=== PATIENT | male | born 1940 | race Caucasian/White ===

== ENCOUNTER → 2017-08-11 12:59 | Outpatient (CLI) | payer MEDICARE, BC ==
[~2017-08-11 12:59] MED LIST: ABILIFY2 MG PO; AMITIZA24 MCG PO; AUGMENTIN 875-11 TAB PO; CARDURA1 MG PO; CYMBALTA60 MG PO; DUREZOL5 ML RIGHT EYE; FLOMAX0.4 MG PO; FLUTICASONE PRO16 GM NASAL; FUROSEMIDE40 MG PO; ILEVRO 0.3% OPHTH DR RIGHT EYE; ISOSORBIDE MONO30 M1 PO; KLOR-CON 1010 MEQ PO; LEVEMIR100 U/M1 SC; MAG-OX 400 MG400 MG PO; NEURONTIN 300300 MG PO; NITROQUICK0.4 MG SL; NORVASC10 MG PO; NOVOLOG100 U/M1 SC; PLAVIX75 MG PO; PRIMIDONE PO; PROBIOTIC1 EAC1 PO; PROPAFENONE HC150 MG PO; TOBREX5 ML RIGHT EYE; ZANAFLEX4 MG PO; ZOFRAN ODT4 MG/UDTAB PO
[2017-08-11 15:07] LABS: CALC OSMOLALITY 291 mosm/kg (275-300); CALCIUM 9.3 mg/dL (8.5-10.1); CARBON DIOXIDE 34.8 mmol/L (21.0-32.0); CHLORIDE - SERUM 105 mmol/L (98-107); CREATININE - SERUM 1.5 mg/dL (0.6-1.3); GLUCOSE 185 mg/dL (74-106); POTASSIUM - SERUM 4.2 mmol/L (3.5-5.1); SODIUM 143 mmol/L (136-145); UREA NITROGEN 19 mg/dL (7-18)
[2017-09-27 09:31] VITALS: BMI 32.9
== END | disposition home or self-care (01) ==
LOC: EDSEX 12:59 → D.LABREF 12:59
PROVIDERS: Internal Medicine Cardiovascular Disease
DX: N18.9 Chronic kidney disease, unspecified (principal)

== ENCOUNTER 2017-09-20 10:04 | Outpatient (CLI) | payer MEDICARE, BC ==
[~2017-09-20] VITALS: Ht 180.3 cm; Wt 105.5 kg
--- NOTE | ~2017-09-20 | HEMODYNAMI ---
PATIENT:FERNANDO NICOLE MEDICAL RECORD: [id number] : 44 LOCATION:D.CAT ADMISSION DATE: 09/20/17 Generatedon:09/20/201713:54 Patient name: FERNANDO NICOLE Patient #: [id number] SSN: : 1940 Date of study: 09/20/2017 Page: Of Hemodynamic Procedure Report Patient Data Patient Demographics Procedure consent was obtained First Name: FERNANDO Gender: Unknown Last Name: [address] : 1940 Middle Initial: H Age: 77 year(s) Patient #: [id number] Race: Unknown Additional ID: [id number] Contact details Address: [address] State: [place] City: [place] Zip code: [address] Past Medical History Allergies Allergen Reaction Date Comments Reported Other allergy 09/20/2017 see chart Admission Admission Data Admission Date: 09/20/2017 Admission Time: 10:04 Height (in.): 72 BSA: 2.31 (m2) Height (cm.): 182.88 BMI: 32.69 (kg/m2) Weight (lbs.): 241 Weight (kg.): 109.32 Procedure Procedure Types Cath Procedure Diagnostic Procedure LHC C w/Coronaries w/Grafts Aortic Root Angiography Miscellaneous Procedures Moderate Sedation up to 15 minutes Procedure Description Procedure Date Procedure Date: 09/20/2017 Procedure Start Time: 13:22 Procedure End Time: 13:51 Procedure Staff Name Function Leonardo Yuan MD Performing Physician Pushpa Aviles RT Monitor Scarlet Rivero RT Scrub Ludmila Edgar RN Nurse Manuel Ralph RN Clinical Psychology Professor Procedure Data Cath Procedure Fluoroscopy Diagnostic fluoroscopy Total fluoroscopy Time: 8.8 time: 8.8 min min Diagnostic fluoroscopy Total fluoroscopy dose: dose: 1166 mGy 1166 mGy Contrast Material Contrast Material Type Amount (ml) Isovue 300 138 Entry Location Entry Primary Successful Side Size Upsize Upsize Entry Closure Succes sful Closure Location (Fr) 1 (Fr) 2 (Fr) Remarks Device Remarks Femoral Right 5 Fr Exoseal artery Estimated blood loss: 10 ml Diagnostic catheters Device Type Used For End Catheter Placement MULTIPACK JL 4.0 5Fr Procedure catheter MULTIPACK 3DRC 5Fr Procedure catheter DIAGNOSTIC AR MOD 5Fr Procedure Catheter ([id number]) DIAGNOSTIC IMT 5Fr Procedure Catheter ([id number]) MULTIPACK Pigtail 5 Fr Procedure catheter DIAGNOSTIC IMT 5Fr Procedure Catheter ([id number]) Procedure Complications No complications Procedure Medications Medication Administration Route Dosage Oxygen NC 2 l/min Lidocaine 2% added to field 20 Heparin Flush Bag added to field 2 bags (1000units/500ml NS) 0.9% NaCl I.V. 100 ml/hr Versed I.V. 1 mg Fentanyl I.V. 50 mcg Fentanyl I.V. 50 mcg Fentanyl I.V. 50 mcg Hemodynamics Rest BSA: 2.31 (m2) O2 Consumption: Estimated: 314.16 (ml/min) O2 Consumption indexed : Estimated:136 (ml/min/m) Heart Rate: 69 (bpm) Pressure Samples Time Site Value (mmHg) Purpose Heart Use Rate(bpm) 13:36 LV 145/2,17 Snapshot 69 13:36 LV 140/0,14 Snapshot 68 13:37 AO 150/62(98) Pullback 70 13:37 LV 147/-4,11 Pullback 70 Gradients Valve Time Site 1 Site 2 Mean SEP/DFP Peak To Heart Use (mmHg) (sec/min) Peak Rate (mmHg) (bpm) Aortic 13:37 LV AO 0 6 0 70 147/-4,11 150/62(98) Calculations Valve P-P Mean Valve Index Valve Source Name Gradient Area Flow (cm2) Aortic 0 0 0 0 Snapshots Pre Cath Intra NCS Post Cath Vital Signs Time Heart Resp SPO2 etCO2 NIBP (mmHg) Rhythm Pain Sedation Rate (ipm) (%) (mmHg) Status Level (bpm) 13:08:09 60 17 97 32.5 Measuring NSR 0 (11) 10(A) , No pain 13:08:28 59 17 97 42.3 172/88(143) NSR 0 (11) 10(A) , No pain 13:12:52 61 16 98 32.4 168/95(143) NSR 0 (11) 10(A) , No pain 13:17:14 58 15 97 33.2 164/87(133) NSR 0 (11) 10(A) , No pain 13:21:40 62 16 98 25.6 180/87(142) NSR 0 (11) 9(A) , No pain 13:25:54 58 13 94 39.3 156/89(142) NSR 0 (11) 9(A) , No pain 13:30:14 70 13 98 34.2 176/97(149) NSR 0 (11) 9(A) , No pain 13:34:47 70 15 99 28.7 171/89(134) NSR 0 (11) 9(A) , No pain 13:39:11 68 15 98 24.9 163/82(123) NSR 0 (11) 9(A) , No pain 13:43:33 67 14 96 33.2 158/91(134) NSR 0 (11) 9(A) , No pain 13:47:57 67 16 97 25.6 169/85(133) NSR 0 (11) 10(A) , No pain 13:52:20 65 11 98 40.8 160/95(127) NSR 0 (11) 10(A) , No pain Medications Time Medication Route Dose Verified Delivered Reason Notes Effe ctiveness by by 13:05:53 Oxygen NC 2 Leonardo Buffie used for l/min Kwabena Edgar RN procedure 13:06:00 Lidocaine 2% added 20ml Leonardo Leonardo for local to vial Kwabena Yuan MD anesthetic field 13:06:06 Heparin Flush added 2 Leonardo Leonardo used for Bag to bags Kwabena Yuan MD procedure (1000units/500ml field NS) 13:06:17 0.9% NaCl I.V. 100 Leonardo Buffie Per ml/hr Kwabena Edgar RN physician 13:15:53 Versed I.V. 1 mg Leonardo Buffie for Kwabena Edgar RN sedation 13:15:59 Fentanyl I.V. 50 Leonardo Buffie for mcg Kwabena Edgar RN sedation 13:19:01 Fentanyl I.V. 50 Leonardo Buffie for mcg Kwabena Edgar RN sedation 13:35:47 Fentanyl I.V. 50 Leonardo Buffie for mcg Kwabena Edgar RN sedation Procedure Log Time Note 12:52:12 Patient Height : 72 inches 12:52:17 Patient Weight : 241 lbs 12:52:48 Diagnostic Cath status Elective 12:52:52 Manuel Ralph RN sent for patient. Start room use. 12:52:54 Time tracking: Regular hours 12:52:58 Plan of Care:Hemodynamics will remain stable., Cardiac rhythm will remain stable., Comfort level will be maintained., Respiratory function will remain adequate., Patient/ family verbilizes understanding of procedure., Procedure tolerated without complication., Recovers from procedure without complications.. 12:56:52 Patient received from Pre/Post Procedure Room to CCL 2 Alert and oriented. Tansferred to table in Supine position. 12:56:53 Warm blankets applied, and mohit hugger turned on for patient comfort. 12:56:54 Correct patient and procedure confirmed by team. 12:56:56 Signed procedure consent form obtained from patient. 12:57:31 H&P Date Dictated: 09/07/2017 Within 30 days and on chart., H&P Addendum completed by physician on day of procedure. (MUST COMPLETE FOR ALL OUTPATIENTS). 12:57:32 Pre-procedure instructions explained to patient. 12:57:36 Family in waiting room. 12:57:37 Patient NPO since Midnight. 12:57:54 Patient allergic to Other allergysee chart 12:58:04 Was the patient premedicated? Yes 13:05:53 Oxygen 2 l/min NC was administered by Ludmila Edgar RN; used for procedure; 13:06:00 Lidocaine 2% 20ml vial added to field was administered by Leonardo Yuan MD; for local anesthetic; 13:06:06 Heparin Flush Bag (1000units/500ml NS) 2 bags added to field was administered by Leonardo Yuan MD; used for procedure; 13:06:17 0.9% NaCl 100 ml/hr I.V. was administered by Ludmila Edgar RN; Per physician; 13:06:21 Vital chart was started 13:14:23 Is patient on blood thinner?Yes 13:14:27 ACC The patient was administered the following blood thiners within the last 24 hours: ACCPlavix 13:14:35 Patient diabetic? Yes. 13:15:10 Snore? Yes 13:15:12 Sleep apnea? No 13:15:23 IV patent on arrival in left hand with 0.9% NaCl at [facility]. 13:15:27 Lab results completed and on chart. 13:15:30 Right groin area was prepped with chlora-prep and draped in sterile fashion 13:15:31 Alarms reviewed by R. N. 13:15:32 Sharps counted by scrub and verified by R.N. 13:15:32 Physician paged 13:15:33 Physician arrived 13:15:39 --------ALL STOP TIME OUT------ 13:15:40 Final Timeout: patient, procedure, and site verified with staff and physician. All members of the team are in agreement. 13:15:41 Right groin site verified by team. 13:15:45 Physical assessment completed. ASA score P 2 - A patient with mild systemic disease as per Leonardo Yuan MD. 13:15:49 Sedation plan: IV Moderate Sedation Medication:Versed, Fentanyl 13:15:53 Versed 1 mg I.V. was administered by Ludmila Edgar RN; for sedation; 13:15:59 Fentanyl 50 mcg I.V. was administered by Ludmila Edgar RN; for sedation; 13:16:10 Use device set Femoral Dx 13:16:11 ACIST Syringe (95120) opened to sterile field. 13:16:12 Bag Decanter (2002S) opened to sterile field. 13:16:13 Medline Cath Pack ([id number]) opened to sterile field. 13:16:14 SHEATH 5FR [place] (TRI230) opened to sterile field. 13:16:14 DIAGNOSTIC WIRE .035 260cm J wire (210796) opened to sterile field. 13:16:16 ACIST Hand Control (42331) opened to sterile field. 13:16:16 ACIST Manifold (67304) opened to sterile field. 13:16:17 DIAGNOSTIC Multipack 5Fr catheter set (QA6221) opened to sterile field. 13:16:19 Tegaderm 4 x 4 (1626W) opened to sterile field. 13:19:01 Fentanyl 50 mcg I.V. was administered by Ludmila Edgar RN; for sedation; 13:19:26 Zero performed for pressure channel P1 13:22:17 Procedure started. 13:22:17 Full Disclosure recording started 13:22:29 Local anesthetic to right femoral artery with Lidocaine 2% by Leonardo Yuan MD.INITIAL ACCESS ONLY 13:23:41 A 5 Fr sheath was inserted into the Right Femoral artery 13:24:06 A MULTIPACK JL 4.0 5Fr catheter was advanced over the wire and used for Procedure. 13:24:09 LCA angiography performed. 13:26:37 Catheter removed. 13:26:48 A MULTIPACK 3DRC 5Fr catheter was advanced over the wire and used for Procedure. 13:26:51 RCA angiography performed. 13:27:37 Catheter removed. 13:28:05 A DIAGNOSTIC AR MOD 5Fr Catheter ([id number]) was advanced over the wire and used for Procedure. 13:29:28 SVG to Circ angiography performed. 13:30:45 Catheter removed. 13:31:39 A DIAGNOSTIC IMT 5Fr Catheter ([id number]) was advanced over the wire and used for Procedure. 13:31:45 DUFFY angiography performed. 13:35:19 A MULTIPACK Pigtail 5 Fr catheter was advanced over the wire and used for Procedure. 13:35:24 LV gram done using JOHNSON 13:35:47 Fentanyl 50 mcg I.V. was administered by Ludmila Edgar RN; for sedation; 13:37:15 EF : 55 % 13:38:13 Aortic Root visualized 13:41:40 GLIDE WIRE ANGLE 260cm (JJ6589) opened to sterile field. 13:42:25 A DIAGNOSTIC IMT 5Fr Catheter ([id number]) was advanced over the wire and used for Procedure. 13:45:32 DUFFY to LAD angiography performed. 13:45:43 DUFFY to Diag angiography performed. 13:49:02 EXOSEAL 5Fr (EX500) opened to sterile field. 13:49:06 Catheter removed. 13:49:17 Sheath removed intact; hemostasis achieved with Exoseal to the Right Femoral artery. 13:49:40 Procedure ended.(Physican Out) 13:49:53 Fluoroscopy time 08.80 minutes. 13:49:58 Fluoroscopy dose: 1166 mGy 13:49:58 Flurop Dose total: 1166 13:50:02 Contrast amount:Isovue 300 138ml. 13:50:03 Sharps counted by scrub and verified by R.N. 13:50:04 Insertion/operative site no bleeding no hematoma. 13:50:07 Post-op/insertion site Right Femoral artery dressed using a 4 x 4 and Tegaderm. 13:50:11 Post Procedure Pulses reassessed and unchanged 13:50:20 Post-procedure physical assessment completed. ASA score P 3 - A patient with severe systemic disease as per Leonardo Yuan MD. 13:50:23 Post procedure rhythm: unchanged. 13:50:27 Estimated blood loss: 10 ml 13:50:29 Post procedure instruction explained to patient.Patient verbalizes understanding. 13:50:48 Procedure type changed to Cath procedure, Diagnostic procedure, LHC, LHC w/Coronaries w/Grafts, Aortic Root Angiography, Miscellaneous Procedures, Moderate Sedation up to 15 minutes 13:50:49 Procedure and supply charges have been captured, reviewed, submitted and are correct. 13:51:21 Procedure Complication : No complications 13:51:24 Vital chart was stopped 13:51:25 See physician's report for complete and final results. 13:51:27 Report given to Pre/Post Procedure Room. 13:51:31 Patient transfered to Pre/Post Procedure Room with Stretcher. 13:51:33 Procedure ended. 13:51:33 Full Disclosure recording stopped 13:51:37 End room use (Document Last) Device Usage Item Name Manufacture Quantity Catalog Number Hospital Part Current Minim al Lot# / Charge Number Stock Stock Serial# Code ACIST Acist 1 51434 682889 561965 596171 20 Syringe Medical (03790) Systems Inc Bag Microtek 1 228902 14124 429376 5 Decanter Medical Inc. () Medline Cardinal 1 [id number] 272789 26038 267621 5 Cath Pack Health ([id number]) SHEATH 5FR Terum[place] 1 [id number] 810377 380418 861773 40 [place] (LHR795) DIAGNOSTIC [place] 1 659792 368835 282390 749562 30 WIRE .035 260cm J wire (847162) ACIST Hand Acist 1 92833 042182 309341 848062 5 Control Medical (16387) Systems Inc ACIST Acist 1 76191 341360 568288 314233 5 Manifold Medical (69213) Systems Inc DIAGNOSTIC Cardinal 1 [id number] 078292 30172 207053 30 Multipack Health 5Fr catheter set (BG1643) Tegaderm 4 3M 1 1626W 937346 091641 653952 5 x 4 (1626W) MULTIPACK Cardinal 1 752472 5 JL 4.0 5Fr Health catheter MULTIPACK Cardinal 1 260074 5 3DRC 5Fr Health catheter DIAGNOSTIC Cardinal 1 [id number] 510866 769021 880618 15 AR MOD 5Fr Health Catheter (902570H) DIAGNOSTIC [place] 1 [id number] 618761 997620 84549 5 IMT 5Fr Scientific Catheter ([id number]) MULTIPACK Cardinal 1 443548 5 Pigtail 5 Health Fr catheter GLIDE WIRE Terumo 1 JN5354 428837 646947 178982 5 ANGLE 260cm (EX8426) EXOSEAL 5Fr Cardinal 1 EX500 633131 366352 141620 10 (EX500) Health Signature Audit [place] Stage Time Signature Unsigned Intra-Procedure 09/20/2017 Pushpa Aviles 1:54:12 PM RT(R) Signatures Monitor : Pushpa Aviles Signature : RT Date : Time : [address] [place] [address]
[2017-09-20 10:47] VITALS: BP 154/72; Ht 180.3 cm; Wt 105.5 kg
[2017-09-20 10:57] LABS: BASOPHILS 0.4 % (0.0-2); EOSINOPHILS 6.4 %; HEMATOCRIT 36.4 % (36.0-48.0); HEMOGLOBIN 11.9 g/dL (12.0-16.0); IMMATURE GRANULOCYTES 0.3 % (0-5); LYMPHOCYTES 19.8 % (15-50); MCH 30.5 pg (26.0-34.0); MCHC 32.7 g/dL (31.0-37.0); MCV 93.3 fL (80.0-100.0); MEAN PLATELET VOLUME 9.7 fL (7.4-10.4); MONOCYTES 7.3 % (2-11); NEUTROPHILS 65.8 % (40-80); PLATELET COUNT 120 10x3/uL (130-400); RDW 13.5 % (11.5-14.5); WBC 6.9 10x3/uL (4.8-10.8)
[2017-09-20 11:05] LABS: CALC OSMOLALITY 294 mosm/kg (275-300); CALCIUM 8.8 mg/dL (8.5-10.1); CARBON DIOXIDE 30.2 mmol/L (21.0-32.0); CHLORIDE - SERUM 105 mmol/L (98-107); CREATININE - SERUM 1.6 mg/dL (0.6-1.3); POTASSIUM - SERUM 3.8 mmol/L (3.5-5.1); SODIUM 143 mmol/L (136-145); UREA NITROGEN 17 mg/dL (7-18)
[2017-09-20 11:08] LABS: GLUCOSE 240 mg/dL (74-106)
[2017-09-20] MEDS ORDERED: ABILIFY2 MG PO (11:09)
[2017-09-20] MEDS ORDERED: FLUTICASONE PRO16 GM NASAL (11:09)
[2017-09-20] MEDS ORDERED: FUROSEMIDE40 MG PO (11:10)
[2017-09-20] MEDS ORDERED: PRIMIDONE PO (11:12)
[2017-09-20] MEDS ORDERED: ISOSORBIDE MONO30 M1 PO (11:14)
[2017-09-20] MEDS ORDERED: TOBREX5 ML RIGHT EYE (11:14)
[2017-09-20] MEDS ORDERED: ILEVRO 0.3% OPHTH DR RIGHT EYE (11:15)
[2017-09-20] MEDS ORDERED: AMITIZA24 MCG PO (11:16)
[2017-09-20] MEDS ORDERED: KLOR-CON 1010 MEQ PO (11:16)
[2017-09-20] MEDS ORDERED: DUREZOL5 ML RIGHT EYE (11:16)
[2017-09-20] MEDS ORDERED: NEURONTIN 300300 MG PO (11:17)
[2017-09-20] MEDS ORDERED: NORVASC10 MG PO (11:17)
[2017-09-20] MEDS ORDERED: AUGMENTIN 875-11 TAB PO (11:18)
[2017-09-20] MEDS ORDERED: PROPAFENONE HC150 MG PO (11:18)
[2017-09-20] MEDS ORDERED: ZOFRAN ODT4 MG/UDTAB PO (11:18)
[2017-09-20] MEDS ORDERED: CARDURA1 MG PO (11:19)
[2017-09-20] MEDS ORDERED: PLAVIX75 MG PO (11:19)
[2017-09-20] MEDS ORDERED: FLOMAX0.4 MG PO (11:20)
[2017-09-20] MEDS ORDERED: CYMBALTA60 MG PO (11:20)
[2017-09-20] MEDS ORDERED: MAG-OX 400 MG400 MG PO (11:21)
[2017-09-20] MEDS ORDERED: PROBIOTIC1 EAC1 PO (11:22)
[2017-09-20] MEDS ORDERED: NITROQUICK0.4 MG SL (11:22)
[2017-09-20] MEDS ORDERED: NOVOLOG100 U/M1 SC (11:23)
[2017-09-20] MEDS ORDERED: LEVEMIR100 U/M1 SC (11:23)
[2017-09-20] MEDS ORDERED: ZANAFLEX4 MG PO (11:26)
== END 2017-09-20 16:45 | disposition home or self-care (01) ==
LOC: D.CATH 10:04 → EDSEX 10:04 → D.CATH 13:00
PROVIDERS: Internal Medicine Cardiovascular Disease
DX: I25.710 Atherosclerosis of autologous vein coronary artery bypass graft(s) with unstable angina pectoris (principal); I25.110 Atherosclerotic heart disease of native coronary artery with unstable angina pectoris; R94.4 Abnormal results of kidney function studies; Z01.812 Encounter for preprocedural laboratory examination

== ENCOUNTER 2017-09-27 08:58 | Outpatient (CLI) | payer MEDICARE, BC ==
[~2017-09-27] VITALS: Ht 180.3 cm; Wt 107.3 kg
--- NOTE | ~2017-09-27 | HEMODYNAMI ---
PATIENT:FERNANDO NICOLE MEDICAL RECORD: [id number] : 44 LOCATION:[facility] ADMISSION DATE: 09/27/17 Generatedon:09/27/201713:37 Patient name: FERNANDO NICOLE Patient #: [id number] SSN: : 1940 Date of study: 09/27/2017 Page: Of Hemodynamic Procedure Report Patient Data Patient Demographics Procedure consent was obtained First Name: FERNANDO Gender: Male Last Name: [address] : 1940 Middle Initial: H Age: 77 year(s) Patient #: [id number] Race: Unknown Additional ID: [id number] Contact details Address: [address] State: [place] City: [place] Zip code: [address] Past Medical History Allergies Allergen Reaction Date Comments Reported Other allergy 09/20/2017 see chart Other allergy 09/27/2017 Aricept, Lipitor, Lopid, Morphine, Niaspan, [place], Prednisone. Admission Admission Data Admission Date: 09/27/2017 Admission Time: 8:58 Admit Source: Other Lab Results Lab Result Date: 09/27/2017 Lab Result Time: 9:50 Biochemistry Name Units Result Min Max BUN mg/dl 22 --(----)-* 7 18 Creatinine mg/dl 1.7 --(----)-* 0.6 1.3 CBC Name Units Result Min Max Hematocrit % 35.3 *-(----)-- 42 54 Hemoglobin g/dl 11.7 *-(----)-- 13.5 17.5 Procedure Procedure Types Cath Procedure PCI Procedure AMI/SVG/FUR BLENDER PTCA or Stent SVG-BMS/CARLOS Initial Miscellaneous Procedures Moderate Sedation up to 45 minutes Procedure Description Procedure Date Procedure Date: 09/27/2017 Procedure Start Time: 13:07 Procedure End Time: 13:32 Procedure Staff Name Function Leonardo Interiano MD Performing Physician Keaton France RT Monitor Pushpa Aviles RT Bharti Edgar RN Nurse Procedure Data Cath Procedure Fluoroscopy Diagnostic fluoroscopy Total fluoroscopy Time: 5.1 time: 5.1 min min Diagnostic fluoroscopy Total fluoroscopy dose: 548 dose: 548 mGy mGy Contrast Material Contrast Material Type Amount (ml) Isovue 300 68 Entry Location Entry Primary Successful Side Size Upsize Upsize Entry Closure Succes sful Closure Location (Fr) 1 (Fr) 2 (Fr) Remarks Device Remarks Femoral Right 6 Fr Exoseal artery Short Estimated blood loss: 10 ml Procedure Complications No complications Procedure Medications Medication Administration Route Dosage Oxygen NC 2 l/min Lidocaine 2% added to field 20 Heparin Flush Bag added to field 2 bags (1000units/500ml NS) 0.9% NaCl I.V. 100 ml/hr Versed I.V. 1 mg Fentanyl I.V. 50 mcg Versed I.V. 1 mg Fentanyl I.V. 50 mcg Integrilin (Bolus I.V. 9.5 ml 2mg/ml) Heparin Bolus I.V. 7000 units Benadryl I.V. 50 mg Hemodynamics Rest HGB: 11.7 (g/dl) Heart Rate: 65 (bpm) Snapshots Pre Cath Intra NCS Post Cath Vital Signs Time Heart Resp SPO2 etCO2 NIBP (mmHg) Rhythm Pain Sedation Rate (ipm) (%) (mmHg) Status Level (bpm) 12:57:16 64 15 96 42.6 147/92(132) NSR 0 (11) 9(A) , No pain 13:02:01 63 14 95 33.6 150/85(121) NSR 0 (11) 9(A) , No pain 13:07:43 65 13 98 44 149/85(118) NSR 0 (11) 9(A) , No pain 13:12:28 64 15 98 38 152/85(124) NSR 0 (11) 9(A) , No pain 13:17:15 63 14 96 0 137/81(124) NSR 0 (11) 9(A) , No pain 13:22:58 66 14 96 42.5 148/86(119) NSR 0 (11) 9(A) , No pain 13:27:22 66 15 96 40.3 147/84(125) NSR 0 (11) 9(A) , No pain 13:35:42 65 14 96 38 137/86(114) NSR 0 (11) 10(A) , No pain Medications Time Medication Route Dose Verified Delivered Reason Notes Effectiveness by by 12:56:59 Benadryl I.V. 50 mg Leonardo Buffie used for Kwabena Edgar RN procedure 12:57:54 Oxygen NC 2 Leonardo Buffie used for l/min Kwabena Edgar RN procedure 12:58:02 Versed I.V. 1 mg Leonardo Buffie for sedation Kwabena Edgar RN 12:58:08 Fentanyl I.V. 50 Leonardo Buffie for sedation mcg Kwabena Edgar RN 13:03:01 Lidocaine 2% added 20ml Leonardo Leonardo for local to vial Kwabena Interiano MD anesthetic field 13:03:07 Heparin Flush added 2 Leonardo Leonardo used for Bag to bags Kwabena Interiano MD procedure (1000units/500ml field NS) 13:03:16 0.9% NaCl I.V. 100 Leonardo Buffie Per physician ml/hr Kwabena Edgar RN 13:08:35 Versed I.V. 1 mg Leonardo Buffie for sedation Kwabena Edgar RN 13:08:38 Fentanyl I.V. 50 Leonardo Buffie for sedation mcg Kwabena Edgar RN 13:09:55 Integrilin I.V. 9.5 Leonardo Buffie for wasted (Bolus 2mg/ml) ml Kwabena Edgar RN antiplatelet 0.5 ml therapy of vial 13:12:51 Heparin Bolus I.V. 7,000 Leonardo Buffie for verifi ed units Kwabena Edgar RN anticoagulation with dr interiano Procedure Log Time Note 12:20:45 Informed consent obtained and on chart 12:21:48 Admit Source: Other 12:21:53 Time tracking: Regular hours 12:21:57 Plan of Care:Hemodynamics will remain stable., Cardiac rhythm will remain stable., Comfort level will be maintained., Respiratory function will remain adequate., Patient/ family verbilizes understanding of procedure., Procedure tolerated without complication., Recovers from procedure without complications.. 12:22:15 H&P Date Dictated: 09/07/2017 Within 30 days and on chart., H&P Addendum completed by physician on day of procedure. (MUST COMPLETE FOR ALL OUTPATIENTS). 12:37:50 Pushpa PERDOMO(R) sent for patient. Start room use. 12:44:13 Patient received from Pre/Post Procedure Room to CCL 1 Alert and oriented. Tansferred to table in Supine position. 12:44:14 Warm blankets applied, and mohit hugger turned on for patient comfort. 12:44:14 Correct patient and procedure confirmed by team. 12:44:15 ECG and BP/O2 sat monitors applied to patient. 12:44:16 Pre-procedure instructions explained to patient. 12:44:17 Pre-op teaching completed and patient verbalized understanding. 12:44:18 Family in waiting room. 12:44:22 Patient NPO since Breakfast. 12:45:28 Patient allergic to Other allergyAricept, Lipitor, Lopid, Morphine, Niaspan, [place], Prednisone. 12:52:17 Is the patient allergic to Iodine/contrast media? No. 12:52:18 Is patient on blood thinner?Yes 12:52:22 ACC The patient was administered the following blood thiners within the last 24 hours: ACCPlavix 12:52:24 Patient diabetic? Yes. 12:52:25 If diabetic: On Metformin? No 12:52:29 Previous problem with sedation/anesthesia? No ? 12:52:30 Snore? Yes 12:52:31 Sleep apnea? Yes 12:52:32 Deviated septum? No 12:52:33 Opens mouth fully? Yes 12:52:34 Sticks out tongue? Yes 12:52:36 Airway obstruction? No ? 12:52:38 Dentures? No ? 12:52:40 Pre procedure: right dorsailis pedis pulse 2+ Normal; easily identifiable; not easily obliterated 12:52:42 Patient pain scale 0/10 ?. 12:52:56 IV patent on arrival in left wrist with 0.9% NaCl at KVO. 12:54:24 Lab Result : BUN 22 mg/dl 12:54:24 Lab Result : Creatinine 1.7 mg/dl 12:54:24 Lab Result : Hemoglobin 11.7 g/dl 12:54:24 Lab Result : Hematocrit 35.3 % 12:54:26 Lab results completed and on chart. 12:54:28 Right groin area was prepped with chlora-prep and draped in sterile fashion 12:54:29 Alarms reviewed by RJacinda NJacinda 12:54:29 Sharps counted by scrub and verified by R.N. 12:54:34 Use device set INTERIANO PCI 12:54:40 Use device set CATH PACK 12:54:42 Medline Cath Pack ([id number]) opened to sterile field. 12:54:43 Bag Decanter (2002S) opened to sterile field. 12:54:44 ACIST Manifold (03200) opened to sterile field. 12:54:44 ACIST Hand Control (87440) opened to sterile field. 12:54:45 DIAGNOSTIC WIRE .035 260cm J wire (646189) opened to sterile field. 12:54:46 ACIST Syringe (89381) opened to sterile field. 12:54:50 INFLATOR Merit BasixCompak (SW2040) opened to sterile field. 12:54:51 TUBING High Pressure Extension Tubing (Kwabena) ([id number]) opened to sterile field. 12:54:51 SHEATH 6FR [place] (MTC555) opened to sterile field. 12:55:00 Physician arrived 12:55:01 --------ALL STOP TIME OUT------ 12:55:01 Final Timeout: patient, procedure, and site verified with staff and physician. All members of the team are in agreement. 12:55:03 Right groin site verified by team. 12:55:05 Physical assessment completed. ASA score P 2 - A patient with mild systemic disease as per Leonardo Interiano MD. 12:55:11 Sedation plan: IV Moderate Sedation Medication:Versed, Fentanyl 12:56:59 Benadryl 50 mg I.V. was administered by Ludmila Edgar RN; used for procedure; 12:57:54 Oxygen 2 l/min NC was administered by Ludmila Edgar RN; used for procedure; 12:58:02 Versed 1 mg I.V. was administered by Ludmila Edgar RN; for sedation; 12:58:08 Fentanyl 50 mcg I.V. was administered by Ludmila Edgar RN; for sedation; 13:00:18 FILTER WIRE EZ 3.5mm-5.50mm guide wire ([id number]) opened to sterile field. 13:00:26 Baseline sample Acquired. 13:00:28 Vital chart was started 13:00:30 Rhythm: sinus rhythm 13:00:32 Full Disclosure recording started 13:03:01 Lidocaine 2% 20ml vial added to field was administered by Leonardo Interiano MD; for local anesthetic; 13:03:07 Heparin Flush Bag (1000units/500ml NS) 2 bags added to field was administered by Leonardo Interiano MD; used for procedure; 13:03:16 0.9% NaCl 100 ml/hr I.V. was administered by Ludmila Edgar RN; Per physician; 13:07:22 Procedure started. 13:07:25 Local anesthetic to right femoral artery with Lidocaine 2% by Leonardo Interiano MD.INITIAL ACCESS ONLY 13:08:28 A 6 Fr Short sheath was inserted into the Right Femoral artery 13:08:35 Versed 1 mg I.V. was administered by Ludmila Edgar RN; for sedation; 13:08:38 Fentanyl 50 mcg I.V. was administered by Ludmila Edgar RN; for sedation; 13:09:27 Zero performed for pressure channel P1 13:09:30 Zero performed for pressure channel P1 13:09:55 Integrilin (Bolus 2mg/ml) 9.5 ml I.V. was administered by Ludmila Edgar RN; for antiplatelet therapy; wasted 0.5 ml of vial 13:10:28 GUIDE 6FR AR 2.0 catheter ([id number]) opened to sterile field. 13:10:41 6 Fr AR 2 guide catheter was inserted over the wire 13:12:51 Heparin Bolus 7,000 units I.V. was administered by Ludmila Edgar RN; for anticoagulation; verified with dr interiano 13:13:50 Filter Wire EZ wire advanced. 13:15:50 Wire advanced across lesion. 13:16:00 basket deployed. 13:21:16 Inflation Number: 1 A INTEGRITY OTW 3.5 X 22 stent ([id number]) was prepped and advanced across the Aorta Left -> Mid CX. The stent was deployed at 14 SHAINA for 0:10 (min:sec). 13:22:17 Stent catheter was removed intact over wire. 13:22:36 Basket retrieved. 13:24:41 Wire removed. 13:26:23 Guide catheter removed. 13:26:39 EXOSEAL 6Fr (EX600) opened to sterile field. 13:27:34 Sheath removed intact; hemostasis achieved with Exoseal to the Right Femoral artery. 13:27:36 Procedure ended.(Physican Out) 13:29:46 Fluoroscopy time 05.10 minutes. 13:29:49 Fluoroscopy dose: 548 mGy 13:29:49 Flurop Dose total: 548 13:29:54 Contrast amount:Isovue 300 68ml. 13:29:55 Sharps counted by scrub and verified by R.N. 13:31:32 Insertion/operative site no bleeding no hematoma. 13:31:43 Post-op/insertion site Right Femoral artery dressed using a 4 x 4 and Tegaderm. 13:31:48 Post right femoral artery:stable, soft, clean and dry 13:31:49 Post Procedure Pulses reassessed and unchanged 13:31:52 Post-procedure physical assessment completed. ASA score P 2 - A patient with mild systemic disease as per Leonardo Interiano MD. 13:31:57 Post procedure rhythm: unchanged. 13:31:59 Estimated blood loss: 10 ml 13:32:01 Post procedure instruction explained to patient.Patient verbalizes understanding. 13:32:03 Patient needs reinforcement of post procedure teaching. 13:32:21 Procedure type changed to Cath procedure, PCI procedure, AMI/SVG/FUR BLENDER PTCA or Stent, SVG-BMS/CARLOS Initial, Miscellaneous Procedures, Moderate Sedation up to 45 minutes 13:32:42 Procedure and supply charges have been captured, reviewed, submitted and are correct. 13:32:44 Procedure Complication : No complications 13:32:46 Vital chart was stopped 13:32:46 See physician's report for complete and final results. 13:32:48 Report given to Pre/Post Procedure Room. 13:32:51 Patient transfered to Pre/Post Procedure Room with Stretcher. 13:32:53 Procedure ended. 13:32:53 Full Disclosure recording stopped 13:33:26 End room use (Document Last) Intervention Summary Intervention Notes Time ActionType Lesion and Equipment Action# Pressure Duration Attributes Used 13:21:16 Place stent Aorta Left INTEGRITY 1 14 00:10 -> Mid CX OTW 3.5 X 22 stent ([id number]) Device Usage Item Name Manufacture Quantity Catalog Number Hospital Part Current Mini mal Lot# / Charge Number Stock Stock Serial# Code Medline Cath Cardinal 1 [id number] 51657 849187 5 Pack Bazari ([id number]) Bag Decanter Microtek 1 122602 98116 120998 5 (2002S) Medical Inc. ACIST Acist 1 53308 116157 497958 507528 5 Manifold Medical (70773) Systems Inc ACIST Hand Acist 1 95059 953403 039991 446959 5 Control Medical (51484) Systems Inc DIAGNOSTIC St [place] 1 481039 153888 279085 557832 30 WIRE .035 260cm J wire (196482) ACIST Acist 1 24972 140702 415936 783586 20 Syringe Medical (79353) Systems Inc INFLATOR Merit 1 [id number] 140575 260209 417030 15 Merit Medical BasixCompak (NG5576) TUBING High Merit 1 [id number] 345793 83954 407103 10 Pressure Medical Extension Tubing (Interiano) ([id number]) SHEATH 6FR Terumo 1 YSC799 028948 521075 964921 40 [place] (ZGF005) FILTER WIRE Hadley 1 [id number] 499388 837072 3179414 1 Keko 3.5mm-5.50mm guide wire ([id number]) GUIDE 6FR AR Medtronic 1 [id number] 593099 02676 384363 1 2.0 catheter (JU3YA02) INTEGRITY Medtronic 1 [id number] 625282 338675 5 [id number] OTW 3.5 X 22 stent ([id number]) EXOSEAL 6Fr Cardinal 1 EX600 427649 946267 030499 10 (EX600) Health Signature Audit Bastian Stage Time Signature Unsigned Intra-Procedure 09/27/2017 Keaton France 1:37:15 PM RT(R) Signatures Monitor : Keaton France RT Signature : Date : Time : [facility] [address] [place] [address]
[2017-09-27 09:31] VITALS: BP 158/71; Ht 180.3 cm; Wt 107.3 kg
[2017-09-27 09:59] LABS: BASOPHILS 0.6 % (0.0-2); HEMATOCRIT 35.3 % (36.0-48.0); HEMOGLOBIN 11.7 g/dL (12.0-16.0); IMMATURE GRANULOCYTES 0.3 % (0-5); LYMPHOCYTES 17.3 % (15-50); MCH 30.6 pg (26.0-34.0); MCHC 33.1 g/dL (31.0-37.0); MCV 92.4 fL (80.0-100.0); MEAN PLATELET VOLUME 9.7 fL (7.4-10.4); MONOCYTES 7.8 % (2-11); PLATELET COUNT 134 10x3/uL (130-400); RBC 3.82 10x6/uL (4.20-6.10); RDW 13.5 % (11.5-14.5); WBC 6.2 10x3/uL (4.8-10.8)
[2017-09-27 10:18] LABS: CALC OSMOLALITY 294 mosm/kg (275-300); CALCIUM 8.8 mg/dL (8.5-10.1); CARBON DIOXIDE 28.5 mmol/L (21.0-32.0); CHLORIDE - SERUM 104 mmol/L (98-107); CREATININE - SERUM 1.7 mg/dL (0.6-1.3); GLUCOSE 252 mg/dL (74-106); POTASSIUM - SERUM 3.8 mmol/L (3.5-5.1); SODIUM 142 mmol/L (136-145); UREA NITROGEN 22 mg/dL (7-18)
== END 2017-09-27 17:55 | disposition home or self-care (01) ==
LOC: EDSEX 08:58 → D.CATH 08:58
PROVIDERS: Internal Medicine Cardiovascular Disease
DX: I25.119 Atherosclerotic heart disease of native coronary artery with unspecified angina pectoris (principal); Z01.812 Encounter for preprocedural laboratory examination

== ENCOUNTER → 2017-11-07 09:56 | Outpatient (CLI) | payer MEDICARE, BC ==
[~2017-11-07] VITALS: Ht 180.3 cm; Wt 107.3 kg
--- NOTE | ~2017-11-07 | HEMODYNAMI ---
PATIENT:FERNANDO NICOLE MEDICAL RECORD: [id number] : 44 LOCATION:[facility] ADMISSION DATE: 11/07/17 Generatedon:11/07/201714:36 Patient name: FERNANDO NICOLE Patient #: [id number] SSN: : 1940 Date of study: 11/07/2017 Page: Of Hemodynamic Procedure Report Patient Data Patient Demographics Procedure consent was obtained First Name: FERNANDO Gender: Male Last Name: [place] : 1940 Middle Initial: H Age: 77 year(s) Patient #: [id number] Race: Unknown Additional ID: [id number] Contact details Address: [facility] [place] State: [place] City: [place] Zip code: [address] Past Medical History Allergies Allergen Reaction Date Comments Reported Other allergy 09/20/2017 see chart Other allergy 09/27/2017 Aricept, Lipitor, Lopid, Morphine, Niaspan, [place], Prednisone. Other allergy 11/07/2017 Morphine,Lopid, Aricept, Lipitor, Niacin, [place], Prednisone. Admission Admission Data Admission Date: 11/07/2017 Admission Time: 9:56 Lab Results Lab Result Date: 11/07/2017 Lab Result Time: 10:25 Biochemistry Name Units Result Min Max BUN mg/dl 21 --(----)-* 7 18 Creatinine mg/dl 1.6 --(----)-* 0.6 1.3 CBC Name Units Result Min Max Hematocrit % 39 *-(----)-- 42 54 Hemoglobin g/dl 12.8 -*(----)-- 13.5 17.5 Procedure Procedure Types Cath Procedure Diagnostic Procedure LHC LHC w/Coronaries w/Grafts Sedation Charges Moderate Sedation up to 15 minutes PCI Procedure Coronary Stent Coronary Stent Initial Procedure Description Procedure Date Procedure Date: 11/07/2017 Procedure Start Time: 14:02 Procedure End Time: 14:35 Procedure Staff Name Function Leonardo Yuan MD Performing Physician Ludmila Edgar RN Nurse Kaila Rice RT Scrub Keaton France RT Monitor Procedure Data Cath Procedure Fluoroscopy Diagnostic fluoroscopy Total fluoroscopy Time: 6.3 time: 6.3 min min Diagnostic fluoroscopy Total fluoroscopy dose: 854 dose: 854 mGy mGy Contrast Material Contrast Material Type Amount (ml) Isovue 300 83 Entry Location Entry Primary Successful Side Size Upsize Upsize Entry Closure Succes sful Closure Location (Fr) 1 (Fr) 2 (Fr) Remarks Device Remarks Femoral Right 5 Fr Exoseal artery Estimated blood loss: 10 ml Diagnostic catheters Device Type Used For End Catheter Placement MULTIPACK JL 4.0 5Fr Procedure catheter DIAGNOSTIC AR MOD 5Fr Procedure Catheter ([id number]) MULTIPACK Pigtail 5 Fr Procedure catheter DIAGNOSTIC IM 5Fr Procedure catheter ([id number]) Procedure Complications No complications Procedure Medications Medication Administration Route Dosage Oxygen NC 2 l/min Lidocaine 2% added to field 20 Heparin Flush Bag added to field 2 bags (1000units/500ml NS) 0.9% NaCl I.V. 100 ml/hr Versed I.V. 1 mg Fentanyl I.V. 50 mcg Versed I.V. 1 mg Fentanyl I.V. 50 mcg Versed I.V. 1 mg Heparin Bolus I.V. 69705 units Hemodynamics Rest HGB: 12.8 (g/dl) Heart Rate: 61 (bpm) Pressure Samples Time Site Value (mmHg) Purpose Heart Use Rate(bpm) 14:12 LV 146/6,24 Snapshot 60 14:13 AO 151/71(101) Pullback 58 14:13 LV 146/3,21 Pullback 58 Gradients Valve Time Site 1 Site 2 Mean SEP/DFP Peak To Heart Use (mmHg) (sec/min) Peak Rate (mmHg) (bpm) Aortic 14:13 LV AO 0 17 0 58 146/3,21 151/71(101) Calculations Valve P-P Mean Valve Index Valve Source Name Gradient Area Flow (cm2) Aortic 0 0 0 0 Snapshots Pre Cath Intra NCS Post Cath Vital Signs Time Heart Resp SPO2 etCO2 NIBP (mmHg) Rhythm Pain Sedation Rate (ipm) (%) (mmHg) Status Level (bpm) 13:55:08 61 13 98 44.5 Measuring NSR 0 (11) 10(A) , No pain 13:55:10 61 13 98 44.5 163/90(148) NSR 0 (11) 10(A) , No pain 14:00:03 58 15 98 33.2 155/81(129) NSR 0 (11) 10(A) , No pain 14:04:54 55 16 98 30.2 144/79(115) NSR 0 (11) 10(A) , No pain 14:09:42 59 14 97 33.2 148/77(103) NSR 0 (11) 9(A) , No pain 14:14:33 60 15 97 10.5 144/78(106) NSR 0 (11) 9(A) , No pain 14:19:24 58 13 98 46.8 142/79(117) NSR 0 (11) 9(A) , No pain 14:24:07 64 16 97 15.8 132/77(105) NSR 0 (11) 9(A) , No pain 14:28:52 60 12 97 43.8 132/83(118) NSR 0 (11) 9(A) , No pain 14:33:38 60 10 97 39.2 135/82(108) NSR 0 (11) 10(A) , No pain Medications Time Medication Route Dose Verified Delivered Reason Notes Effectiveness by by 13:41:18 Oxygen NC 2 Leonardo Buffie used for l/min Kwabena Edgar RN procedure 13:41:25 Lidocaine 2% added 20ml Leonardo Leonardo for local to vial Kwabena Yuan MD anesthetic field 13:41:31 Heparin Flush added 2 Leonardo Leonardo used for Bag to bags Kwabena Yuan MD procedure (1000units/500ml field NS) 13:41:39 0.9% NaCl I.V. 100 Leonardo Buffie Per physician ml/hr Kwabena Edgar RN 14:01:05 Versed I.V. 1 mg Leonardo Buffie for sedation Kwabena Edgar RN 14:01:11 Fentanyl I.V. 50 Leonardo Buffie for sedation mcg Kwabena Edgar RN 14:06:25 Versed I.V. 1 mg Leonardo Buffie for sedation Kwabena Edgar RN 14:06:31 Fentanyl I.V. 50 Leonardo Buffie for sedation mcg Kwabena Edgar RN 14:13:00 Heparin Bolus I.V. 05119 Leonardo Buffie for verifi ed units Yuan MD Edgar RN anticoagulation with dr yuan 14:14:19 Versed I.V. 1 mg Leonardo Keys for sedation Kwabena Edgar RN Procedure Log Time Note 13:35:10 Brielle Counts RT(R) sent for patient. Start room use. 13:35:11 Time tracking: Regular hours 13:35:15 Plan of Care:Hemodynamics will remain stable., Cardiac rhythm will remain stable., Comfort level will be maintained., Respiratory function will remain adequate., Patient/ family verbilizes understanding of procedure., Procedure tolerated without complication., Recovers from procedure without complications.. 13:35:16 Signed procedure consent form obtained from patient. 13:36:39 H&P Date Dictated: 11/01/2017 Within 30 days and on chart., H&P Addendum completed by physician on day of procedure. (MUST COMPLETE FOR ALL OUTPATIENTS). 13:41:18 Oxygen 2 l/min NC was administered by Ludmila Edgar RN; used for procedure; 13:41:25 Lidocaine 2% 20ml vial added to field was administered by Leonardo Yuan MD; for local anesthetic; 13:41:31 Heparin Flush Bag (1000units/500ml NS) 2 bags added to field was administered by Leonardo Yuan MD; used for procedure; 13:41:39 0.9% NaCl 100 ml/hr I.V. was administered by Ludmila Edgar RN; Per physician; 13:46:39 Patient received from Pre/Post Procedure Room to CCL 1 Alert and oriented. Tansferred to table in Supine position. 13:46:40 Warm blankets applied, and mohit hugger turned on for patient comfort. 13:46:41 Correct patient and procedure confirmed by team. 13:46:42 ECG and BP/O2 sat monitors applied to patient. 13:53:59 Vital chart was started 13:54:24 Baseline sample Acquired. 13:54:35 Rhythm: sinus rhythm 13:54:36 Full Disclosure recording started 13:54:38 Pre-procedure instructions explained to patient. 13:54:39 Pre-op teaching completed and patient verbalized understanding. 13:54:41 Family in waiting room. 13:54:43 Patient NPO since Midnight. 13:56:00 Patient allergic to Other allergyMorphine,Lopid, Aricept, Lipitor, Niacin, [place], Prednisone. 13:56:02 Is the patient allergic to Iodine/contrast media? No. 13:56:04 Is patient on blood thinner?Yes 13:56:07 ACC The patient was administered the following blood thiners within the last 24 hours: ACCPlavix 13:56:09 Patient diabetic? No. 13:56:24 Previous problem with sedation/anesthesia? No ? 13:56:25 Snore? Yes 13:56:25 Sleep apnea? Yes 13:56:26 Deviated septum? No 13:56:27 Opens mouth fully? Yes 13:56:28 Sticks out tongue? Yes 13:57:08 Airway obstruction? No ? 13:57:20 Dentures? Yes in tight 13:57:35 Pre procedure: right dorsailis pedis pulse 2+ Normal; easily identifiable; not easily obliterated 13:57:38 Patient pain scale 0/10 ?. 13:57:52 IV patent on arrival in left wrist with 0.9% NaCl at [facility]. 13:58:28 Lab Result : BUN 21 mg/dl 13:58:28 Lab Result : Hemoglobin 12.8 g/dl 13:58:28 Lab Result : Creatinine 1.6 mg/dl 13:58:28 Lab Result : Hematocrit 39 % 13:58:31 Lab results completed and on chart. 13:58:34 Right groin area was prepped with chlora-prep and draped in sterile fashion 13:58:35 Alarms reviewed by R. N. 13:58:36 Sharps counted by scrub and verified by R.N. 13:58:38 Use device set Femoral Dx 13:58:39 ACIST Syringe (74079) opened to sterile field. 13:58:39 Bag Decanter () opened to sterile field. 13:58:40 Medline Cath Pack ([id number]) opened to sterile field. 13:58:41 ACIST Hand Control (75941) opened to sterile field. 13:58:42 ACIST Manifold (05964) opened to sterile field. 13:58:44 Tegaderm 4 x 4 (1626W) opened to sterile field. 13:58:44 PERCUTANEOUS ENTRY 19GA needle opened to sterile field. 13:58:45 DIAGNOSTIC Multipack 5Fr catheter set (UL6190) opened to sterile field. 13:58:46 SHEATH 5FR [place] (NQC878) opened to sterile field. 13:58:47 DIAGNOSTIC WIRE .035 260cm J wire (897737) opened to sterile field. 13:59:08 Physician arrived 13:59:09 --------ALL STOP TIME OUT------ 13:59:09 Final Timeout: patient, procedure, and site verified with staff and physician. All members of the team are in agreement. 13:59:13 Right groin site verified by team. 13:59:15 Physical assessment completed. ASA score P 2 - A patient with mild systemic disease as per Leonardo Yuan MD. 13:59:18 Sedation plan: IV Moderate Sedation Medication:Versed, Fentanyl 14:01:05 Versed 1 mg I.V. was administered by Ludmila Edgar RN; for sedation; 14:01:11 Fentanyl 50 mcg I.V. was administered by Ludmila Edgar RN; for sedation; 14:01:32 Procedure started. 14:01:45 Zero performed for pressure channel P1 14:02:02 Local anesthetic to right femoral artery with Lidocaine 2% by Leonardo Yuan MD.INITIAL ACCESS ONLY 14:03:21 A 5 Fr sheath was inserted into the Right Femoral artery 14:03:43 A MULTIPACK JL 4.0 5Fr catheter was advanced over the wire and used for Procedure. 14:04:58 LCA angiography performed. 14:06:19 Catheter exchanged over wire. 14:06:20 A DIAGNOSTIC IM 5Fr catheter ([id number]) was advanced over the wire and used for Procedure. 14:06:25 DUFFY angiography performed. 14:06:25 Versed 1 mg I.V. was administered by Ludmila Edgar RN; for sedation; 14:06:31 Fentanyl 50 mcg I.V. was administered by Ludmila Edgar RN; for sedation; 14:06:40 Catheter exchanged over wire. 14:06:45 A DIAGNOSTIC AR MOD 5Fr Catheter ([id number]) was advanced over the wire and used for Procedure. 14:06:49 RCA angiography performed. 14:07:54 SVG to Circ angiography performed. 14:11:47 Catheter removed. 14:12:12 GUIDE 6FR XBLAD 3.5 catheter ([id number]) opened to sterile field. 14:12:13 TUBING High Pressure Extension Tubing (Kwabena) (BM4087H) opened to sterile field. 14:12:14 SHEATH 6FR [place] (WTO990) opened to sterile field. 14:12:21 BMW 300cm [place] 2 J wire (1881470C) opened to sterile field. 14:12:29 EXOSEAL 6Fr (EX600) opened to sterile field. 14:12:50 A MULTIPACK Pigtail 5 Fr catheter was advanced over the wire and used for Procedure. 14:12:54 LV hemodynamics recorded. 14:12:55 LV gram done using JOHNSON 14:12:57 Injector settings: Ml/sec: 10, Volume: 20, 14:13:00 Heparin Bolus 33294 units I.V. was administered by Ludmila Edgar RN; for anticoagulation; verified with dr yuan 14:13:05 EF : 45 % 14:14:19 Versed 1 mg I.V. was administered by Ludmila Edgar RN; for sedation; 14:14:21 Catheter removed. 14:14:38 6 Fr xblad 3.5 guide catheter was inserted over the wire 14:18:48 bmw wire advanced. 14:23:15 Wire advanced across lesion. 14:24:37 Inflation Number: 1 A INTEGRITY OTW 4.0 X 12 stent ([id number]) was prepped and advanced across the LMCA. The stent was deployed at 13 SHAINA for 0:10 (min:sec). 14:25:02 INFLATOR Merit BasixCompak (GW7924) opened to sterile field. 14:25:14 Stent catheter was removed intact over wire. 14:25:15 Wire removed. 14:25:15 Guide catheter removed. 14:25:28 Sheath removed intact; hemostasis achieved with Exoseal to the Right Femoral artery. 14:25:30 Procedure ended.(Physican Out) 14:28:20 Fluoroscopy time 06.30 minutes. 14:28:23 Flurop Dose total: 854 14::23 Fluoroscopy dose: 854 mGy 14:28:27 Contrast amount:Isovue 300 83ml. 14:28:29 Sharps counted by scrub and verified by R.N. 14:28:31 Insertion/operative site no bleeding no hematoma. 14:28:33 Post-op/insertion site Right Femoral artery dressed using a 4 x 4 and Tegaderm. 14:28:38 Post right femoral artery:stable, soft, clean and dry 14:28:40 Post Procedure Pulses reassessed and unchanged 14:28:44 Post-procedure physical assessment completed. ASA score P 2 - A patient with mild systemic disease as per Leonardo Yuan MD. 14:28:46 Post procedure rhythm: unchanged. 14:28:51 Estimated blood loss: 10 ml 14:28:53 Post procedure instruction explained to patient.Patient verbalizes understanding. 14:28:53 Patient needs reinforcement of post procedure teaching. 14:29:02 Procedure type changed to Cath procedure, Diagnostic procedure, LHC, LHC w/Coronaries w/Grafts, Sedation Charges, Moderate Sedation up to 15 minutes, PCI procedure, Coronary Stent, Coronary Stent Initial 14:35:33 Procedure and supply charges have been captured, reviewed, submitted and are correct. 14:35:41 Procedure Complication : No complications 14:35:43 Vital chart was stopped 14:35:43 See physician's report for complete and final results. 14:35:44 Report given to Pre/Post Procedure Room. 14:35:46 Patient transfered to Pre/Post Procedure Room with Stretcher. 14:35:48 Procedure ended. 14:35:48 Full Disclosure recording stopped 14:35:51 End room use (Document Last) Intervention Summary Intervention Notes Time ActionType Lesion and Equipment Action# Pressure Duration Attributes Used 14:24:37 Place stent LMCA INTEGRITY 1 13 00:10 OTW 4.0 X 12 stent ([id number]) Device Usage Item Name Manufacture Quantity Catalog Hospital Part Current Minimal Lot# / Number Charge Number Stock Stock Serial# Code ACIST Acist 1 39486 143081 043148 696714 20 Syringe Medical (08645) Systems Inc Bag Decanter Microtek 1 2001S 849586 08641 164971 5 () Medical Inc. Medline Cath Cardinal 1 [id number] 227294 86040 256131 5 Pack Health ([id number]) ACIST Hand Acist 1 77567 511896 960780 833499 5 Control Medical (52153) Systems Inc ACIST Acist 1 24577 210245 806209 906441 5 Manifold Medical (79084) Systems Inc Tegaderm 4 x 3M 1 1626W 628467 045722 674555 5 4 (1626W) PERCUTANEOUS Cook Medical 1 G02809 812935 252144 5 ENTRY 19GA needle DIAGNOSTIC Cardinal 1 CQ3459 174117 58277 776330 30 Multipack Health 5Fr catheter set (XT2500) SHEATH 5FR Terumo 1 LUB896 131293 791682 715402 40 [place] (PAH007) DIAGNOSTIC St Juan 1 829065 055414 427235 375647 30 WIRE .035 260cm J wire (648629) MULTIPACK JL Cardinal 1 929853 5 4.0 5Fr Health catheter DIAGNOSTIC Cardinal 1 [id number] 236187 360490 850656 15 AR MOD 5Fr Health Catheter (879222V) GUIDE 6FR Cardinal 1 20868188 165986 093124 210249 10 XBLAD 3.5 Health catheter (87417583) TUBING High Merit 1 [id number] 084471 49648 796152 10 Pressure Medical Extension Tubing (Yuan) (FA4927D) SHEATH 6FR Terumo 1 LBG998 574357 767737 481711 40 [place] (FLP699) BMW 300cm Muhammad 1 [id number] 096865 078331 562984 5 [place] 2 Vascular J wire (6883424U) EXOSEAL 6Fr Cardinal 1 EX600 554427 812123 991726 10 (EX600) Health MULTIPACK Cardinal 1 252590 5 Pigtail 5 Fr Health catheter INTEGRITY Medtronic 1 [id number] 740248 046691 3 [id number] OTW 4.0 X 12 stent ([id number]) DIAGNOSTIC Cardinal 1 [id number] 127508 348641 139360 5 IM 5Fr Health catheter (639301Y) INFLATOR Merit 1 BJ1055 880247 683930 982670 15 [facility] BasixCompak (SS6577) Signature Audit [place] Stage Time Signature Unsigned Intra-Procedure 11/07/2017 Keaton France 2:36:33 PM RT(R) Signatures Monitor : Keaton France RT Signature : Date : Time : [facility] [address] [place] [address]
[2017-11-07 10:39] VITALS: BP 154/70; Ht 180.3 cm; Wt 107.3 kg
[2017-11-07 10:42] LABS: BASOPHILS 0.6 % (0-2); HEMOGLOBIN 12.8 g/dL (13.5-17.5); IMMATURE GRANULOCYTES 0.3 % (0-5); LYMPHOCYTES 21.6 % (15-50); MCH 30.8 pg (26.0-34.0); MCHC 32.8 g/dL (31.0-37.0); MEAN PLATELET VOLUME 9.6 fL (7.4-10.4); MONOCYTES 7.9 % (2-11); NEUTROPHILS 64.6 % (40-80); PLATELET COUNT 142 10x3/uL (130-400); RBC 4.15 10x6/uL (4.20-6.10); RDW 13.1 % (11.5-14.5); WBC 7.2 10x3/uL (4.8-10.8)
[2017-11-07 10:44] LABS: ANION GAP 9.5 mmol/L (8-16); CALCIUM 9.6 mg/dL (8.5-10.1); CARBON DIOXIDE 32.2 mmol/L (21.0-32.0); CREATININE - SERUM 1.6 mg/dL (0.6-1.3); POTASSIUM - SERUM 3.7 mmol/L (3.5-5.1)
== END | disposition home or self-care (01) ==
LOC: D.CATH 09:56
PROVIDERS: Internal Medicine Cardiovascular Disease
DX: I25.119 Atherosclerotic heart disease of native coronary artery with unspecified angina pectoris (principal); J44.9 Chronic obstructive pulmonary disease, unspecified; I10 Essential (primary) hypertension; Z01.812 Encounter for preprocedural laboratory examination

== ENCOUNTER → 2018-09-07 12:31 | Outpatient (CLI) | payer MEDICARE, BC ==
[2017-11-07 10:39] VITALS: BMI 32.9
[2018-09-11 04:13] LABS: IMMUNOGLOBULIN E 5 IU/mL (0-100)
== END | disposition home or self-care (01) ==
LOC: D.RT 12:31
PROVIDERS: Internal Medicine Pulmonary Disease
DX: J44.9 Chronic obstructive pulmonary disease, unspecified (principal)

== ENCOUNTER → 2018-09-14 12:24 | Outpatient (CLI) | payer MEDICARE, BC ==
[2017-11-07 10:39] VITALS: BMI 32.9
== END | disposition home or self-care (01) ==
LOC: D.RAD 12:24
DX: T17.928A Food in respiratory tract, part unspecified causing other injury, initial encounter (principal); X58.XXXA Exposure to other specified factors, initial encounter

== ENCOUNTER 2018-11-02 12:22 | Emergency (ER) | payer MEDICARE, BC ==
[~2018-11-02] VITALS: Ht 180.3 cm; Wt 108.6 kg
[~2018-11-02 12:22] MED LIST changes: +LEVEMIR IN100 UNITS/ SQ; -LEVEMIR100 U/M1 SC; -NOVOLOG100 U/M1 SC; +NOVOLOG100 UNIT/1 SQ
[2018-11-02 12:27] VITALS: BP 161/84; Ht 180.3 cm; Wt 108.6 kg
[2018-11-02] MEDS ORDERED: SINGULAIR10 MG PO (12:36)
[2018-11-02] MEDS ORDERED: METOLAZONE2.5 MG PO (12:37)
[2018-11-02] MEDS ORDERED: HYDROXYZINE HCL10 MG PO (12:38)
[2018-11-02] MEDS ORDERED: PROSCAR5 MG PO (12:38)
[2018-11-02] MEDS ORDERED: PEPCID AC20 MG PO (12:38)
[2018-11-02] MEDS ORDERED: COLACE100 MG PO (12:39)
[2018-11-02 13:36] LABS: ALBUMIN 3.3 g/dL (3.4-5.0); ANION GAP 16.9 mmol/L (8-16); BILIRUBIN - TOTAL 0.33 mg/dL (0.2-1.3); CALCIUM 9.1 mg/dL (8.5-10.1); CARBON DIOXIDE 28.6 mmol/L (21.0-32.0); CREATININE - SERUM 1.9 mg/dL (0.6-1.3); POTASSIUM - SERUM 3.5 mmol/L (3.5-5.1); PROTEIN - SERUM 7.1 g/dL (6.4-8.2)
[2018-11-02 13:49] LABS: BASOPHILS 0.4 % (0-2); EOSINOPHILS 1.5 % (0-7); HEMATOCRIT 36.2 % (42.0-54.0); IMMATURE GRANULOCYTES 0.7 % (0-5); LYMPHOCYTES 13.9 % (15-50); MCH 30.8 pg (26.0-34.0); MCHC 33.1 g/dL (31.0-37.0); MCV 93.1 fL (80.0-100.0); MEAN PLATELET VOLUME 10.1 fL (7.4-10.4); MONOCYTES 5.4 % (2-11); NEUTROPHILS 78.1 % (40-80); RBC 3.89 10x6/uL (4.20-6.10); RDW 13.1 % (11.5-14.5); WBC 7.2 10x3/uL (4.8-10.8)
[2018-11-02 14:02] LABS: PLATELET COUNT 173 10x3/uL (130-400)
[2018-11-02 15:56] LABS: AMYLASE - SERUM 27 U/L (25-115); LIPASE 169 U/L (73-393)
[2018-11-02 16:38] LABS: CKMB 1.2 U/L (0.0-3.6); CREATINE KINASE 79 UL (21-232); PRO BNP 587 pg/mL (0-450); TROPONIN-I 0.021 ng/mL (0.000-0.060)
== END 2018-11-02 18:31 | disposition home or self-care (01) ==
LOC: D.ER 12:22
PROVIDERS: Family Medicine
DX: R53.81 Other malaise (principal); R53.1 Weakness

== ENCOUNTER 2018-12-18 11:59 | Inpatient (IN) | payer MEDICARE, BC ==
[~2018-12-18] VITALS: Ht 180.3 cm; Wt 114.1 kg
--- NOTE | ~2018-12-18 | EC ---
PATIENT:FERNANDO NICOLE DATE OF SERVICE: 12/18/18 SEX: M MEDICAL RECORD: [id number] DATE OF : 44 LOCATION:D.M2 D.213 AGE OF PATIENT: 78 ADMISSION DATE: 12/18/18 REFERRING PHYSICIAN: INTERPRETING PHYSICIAN: YORDAN CHURCHILL MD ECHOCARDIOGRAM REPORT ECHO CHARGES 4 ECHO COMPLETE Date: 12/19/18 CLINICAL DIAGNOSIS: CHF ECHOCARDIOGRAPHIC MEASUREMENTS (adult normal given) AC root (d.<3.7cm) 3.5 cm LV Septum d (<1.2 cm> 1.7 cm Valve Excursion 2.1 cm LV Septum (systole) 2.8 cm Left Atria (s.<4.0cm> 5.1 cm LVPW d(<1.2cm) 1.8 cm RV (d.<2.3cm) 3.1 cm LVPW (sytole) 2.8 cm LV diastole(<5.6CM) 6.9 cm MV E-F(>70mm/sec) cm LV systole 3.7 cm LVOT Diameter 2.1 cm MV exc.(>10mm) cm Est.ejection fraction (50-75%) % DOPPLER: LVIT cm/sec A 66.0 cm/sec E 126 cm/sec LA cm/sec RVSP 41.0 mmHg LVOT 138 cm/sec AOP1/2T m/s Asc. Ao 177 cm/sec RVOT 81.0 cm/sec RA cm/sec PA 135 cm/sec AV Gradient Peak 13.0 mmHg AV Mean 4.8 mmHg AV Area 2.6 cm MV Gradient Peak 6.1 mmHg MV Mean 1.4 mmHg MV Area cm COMMENTS: [employer] Rep: 1 DORIAN AMBOY Drafter Commercial: 1 Dr. Churchill TAPE# PACS Pericardial Effusion N DATE OF SERVICE: FINDINGS: 1. Left ventricular chamber size is mildly dilated. Left ventricular systolic function is preserved. Overall ejection fraction estimated at 55%. 2. Left atrium is enlarged at 5.1 cm. Right atrium and right ventricular chamber sizes are as well mildly dilated. 3. Valvular structures have normal structure and motion. 4. Doppler interrogation reveals mild mitral regurgitation, mild tricuspid regurgitation, no other valvular insufficiency or stenosis. Pulmonary systolic ECHOCARDIOGRAM REPORT [id number] FERNANDO NICOLE pressure is estimated 41 mmHg. 5. No evidence of pericardial effusion or left ventricular thrombus. TRANSINT:[id number] Voice Confirmation ID: [id number] DOCUMENT ID: [id number] YORDAN CHURCHILL MD CC: [id number] DICTATION DATE: 12/20/18847 CAROUSEL ATTENDANT: 12/20/18904 ADM IN [facility] [address] [id number]
[~2018-12-18 11:59] MED LIST changes: +COLACE100 MG PO; +HYDROXYZINE HCL10 MG PO; +METOLAZONE2.5 MG PO; +PEPCID AC20 MG PO; +PROSCAR5 MG PO; +SINGULAIR10 MG PO
[2018-12-18] MEDS ORDERED: ASPIRIN81 MG PO (12:31)
[2018-12-18] MEDS ORDERED: XARELTO15 MG PO (12:32)
--- NOTE | 2018-12-18 12:45 | NUR ---
FSBS= 238 MG/DL
[2018-12-18 13:00] VITALS: BP 152/72
--- NOTE | 2018-12-18 13:04 | NUR ---
RESP 9 BPM
[2018-12-18 13:14] LABS: BASOPHILS 0.6 % (0-2); EOSINOPHILS 7.8 % (0-7); HEMATOCRIT 34.8 % (42.0-54.0); IMMATURE GRANULOCYTES 0.4 % (0-5); MCH 30.5 pg (26.0-34.0); MCHC 31.6 g/dL (31.0-37.0); MCV 96.4 fL (80.0-100.0); MEAN PLATELET VOLUME 10.5 fL (7.4-10.4); MONOCYTES 8.5 % (2-11); NEUTROPHILS 63.7 % (40-80); RBC 3.61 10x6/uL (4.20-6.10); RDW 13.1 % (11.5-14.5); WBC 6.8 10x3/uL (4.8-10.8)
[2018-12-18 13:34] LABS: PLATELET COUNT 135 10x3/uL (130-400)
[2018-12-18 13:47] LABS: ALBUMIN 3.1 g/dL (3.4-5.0); ANION GAP 7.7 mmol/L (8-16); BILIRUBIN - TOTAL 0.21 mg/dL (0.2-1.3); CALCIUM 9.2 mg/dL (8.5-10.1); CARBON DIOXIDE 34.7 mmol/L (21.0-32.0); POTASSIUM - SERUM 4.4 mmol/L (3.5-5.1); PROTEIN - SERUM 6.5 g/dL (6.4-8.2)
[2018-12-18 13:49] LABS: KETONE - SERUM NEGATIVE (NEGATIVE)
--- NOTE | 2018-12-18 14:00 | NUR ---
TO CT VIA STRETCHER WITH ELECTRIC LINEMAN
[2018-12-18 14:05] LABS: TROPONIN-I 0.029 ng/mL (0.000-0.060)
[2018-12-18 14:56] LABS: APPEARANCE CLEAR (CLEAR); BILIRUBIN NEGATIVE (NEGATIVE); COLOR YELLOW (YELLOW); GLUCOSE NEGATIVE (NEGATIVE); KETONE NEGATIVE (NEGATIVE); NITRITE NEGATIVE (NEGATIVE); PROTEIN NEGATIVE (NEGATIVE); UROBILINOGEN NORMAL (NORMAL)
[2018-12-18 15:00] VITALS: BP 154/76
[2018-12-18 16:20] VITALS: BP 134/76
--- NOTE | 2018-12-18 17:44 | NUR ---
[facility] CALLED, SPOKE WITH DOUG. INFORMED DOUG OF NEED FOR REP TO COME AND DECREASE PTS INPLANTED PAIN PUMP D/T OVER SEDATION. HE IS LEAVING LR RIGHT NOW AND WILL BE HERE DRIVING TIME
--- NOTE | 2018-12-18 18:41 | NUR ---
SBAR REPORT GIVEN TO CARMELITA PERSAUD
[2018-12-18 19:00] VITALS: BP 134/71
--- NOTE | 2018-12-18 19:09 | NUR ---
DOUG WITH [facility] HERE TO DECREASE PAIN PUMP RATE. DOUG REPORTS CURRENT RATE IS HYDROMORPHONE 1.699 MG/DAY WITH BOLUS OPTION. DECREASING TO 0.062 MG/DAY AND DISABLING THE BOLUS OPTION
--- NOTE | 2018-12-18 19:24 | NUR ---
UPDATED MAHESH RN ON MED/SURG RE: PAIN PUMP CHANGES
[2018-12-18 20:00] VITALS: BP 135/66
--- NOTE | 2018-12-18 21:56 | NUR ---
PUT TELEMETRY ON FOR PT. CALL LIGHT IN REACH.
[2018-12-19] VITALS (7 sets, daily range): BP systolic 135–159; BP diastolic 61–86; Ht 180.3 cm; Wt 114.1 kg
--- NOTE | 2018-12-19 04:42 | NUR ---
REST QUIELTY IN BED, CALL LIGHT IN REACH.
--- NOTE | 2018-12-19 07:48 | NUR ---
OFFSHIFT NURSE REPORTS THAT SHE GAVE PT PRN DILAUDID AROUND 0300. RN ASSESSED PT. PT RR IS 7 BREATHS PER MIN. PT IS LETHARGIC BUT EASILY AROUSED. BP 170/80. PT REPORTS NO PAIN AT THIS TIME. WILL CONT TO FOLLOW POC
--- NOTE | 2018-12-19 09:00 | NUR ---
PT RESTING IN BED, AM MEDS GIVEN ORDERED. SHIFT ASSESSMENT PERFORMED. DENIES NEEDS AT THIS TIME, WILL CONT TO FOLLOW PLAN OF CARE
[2018-12-19 09:15] LABS: % SATURATION 29 % (15-55); IRON 86 ug/dl (35-150); TOTAL IRON BIND CAPACITY 288 ug/dl (260-445); UNSAT IRON BIND CAPACITY 202 ug/dl (150-375)
--- NOTE | 2018-12-19 13:12 | NUR ---
PT STATES THAT HE IS SEEN BY WITH [facility] HERE IN [place]. NOTIFIED OF CHANGES MADE TO PT PAIN PUMP THAT WAY ON DISCHARGE PT WILL BE ABLE TO HAVE SETTINGS READJUSTED. STATES THAT THE LAST TIME THE PT CONTINUOUS DOSE WAS ADJUSTED WAS 5 WEEKS AGO. IS WORRIED THAT THERE MAY BE SOMETHING ELSE CAUSING THE PT DECREASED LOC AND DECREASED RR. PER , WHEN [facility] STOPPED THE PTS INFUSION LAST NIGHT, THE PT SHOULD HAVE COME OUT OF HIS LETHARGIC STATE BY THIS AM. ADVISED THAT PT RR IS ONLY 10 BREATHS PER MINUTE THIS AM AND THAT RN WILL DISCUSS CONCERNS WITH . REQUESTS TO SEE THE PT IN HIS CLINIC 12/24/18 TO RESTART A LOWER DOSE OF HIS INTRATHECAL DILAUDID BUT VERBALIZES UNDERSTANDING THAT PT MAY NOT BE DISCHARGED BY THEN. PUT THE PT ON HIS SCHEDULE FOR 0900 AND RN TOOK DOWN APPOINTMENT DATE AND TIME TO GIVE TO PT . REQUEST THAT IF PT DOES DISCHARGE BEFORE 12/24/18 THAT THE PT BE GIVEN SOME ORAL MEDICATION FOR MAX OF 1 WEEK JUST TO KEEP PT FROM GOING THROUGH WITHDRAWS BEFORE PT IS SEEN AT PAIN CLINIC. WILL DISCUSS WITH
--- NOTE | 2018-12-19 21:00 | NUR ---
RECIEVED BEDSIDE REPORT. ROUNDS COMPLETED. VSS, AAOX3. NO S/S OF RR DISTRESS. AT BEDSIDE. MED GIVEN. PT DENIES ANY NEED FOR COMFORT CARE. WILL CTM. CL IN REACH, BED IN LOW, SR UP X2.
[2018-12-20 00:30] VITALS: BP 167/75
[2018-12-20 04:30] VITALS: BP 147/76
--- NOTE | 2018-12-20 07:30 | NUR ---
MORNING ROUNDS MADE. PT LAYING IN BED RESTING. DENIES PAIN AT THIS TIME. A/O X 4. AT BEDSIDE. IV TO R AC SL. ROOM AIR. LUNG CLEAR. PT STATES HE IS GOING HOME TODAY. NO EDEMA NOTED. NO FURTHER CONCERNS AT THIS TIME. WILL CTM. SAFETY PRECAUTIONS IN PLACE.
[2018-12-20 08:33] VITALS: BP 171/78
--- NOTE | 2018-12-20 09:57 | NUR ---
PT SITTING UP IN CHIAR AT BEDSIDE. DENIES PAIN AT THIS TIME. VITALS STABLE. TOOK MEDS WITHOUT DIFFICULTY. AT BEDSIDE. PT STATES HE WANTS TO GO HOME. IV TO R NGHIA PEGUERO. JANET C/D/I. PATENT. NO REDNESS OR EDEMA. NO FURTHER CONERNS AT THIS TIME. PT REFUSES TO PUT A GOWN ON AT THIS TIME. WILL CTM.
[2018-12-20 11:48] VITALS: BP 161/68
[2018-12-20 12:12] LABS: FOLATE (FOLIC ACID) - SERUM >20.0 ng/mL (>3.0)
--- NOTE | 2018-12-20 12:43 | NUR ---
I CONCUR WITH THE ASSESSMENT PERFORMED BY JANU BOYLE
[2018-12-20 15:52] VITALS: BP 170/75
--- NOTE | 2018-12-20 17:38 | NUR ---
BLAIRE MIXED. GAVE TO PT. MIXED FIRST CUP WITH APPLE JUICE. INFORMED PT HE HAD TILL MIDNIGHT TO DRINK THE WHOLE JUG. PT AGREED. NO FURTHER CONCERNS AT THIS TIME. WILL CTM.
[2018-12-20 20:00] VITALS: BP 192/87
--- NOTE | 2018-12-20 21:00 | NUR ---
ROUNDS COMPLETED. VSS WITH SBP 190'S. REASSSED PT. FOUND OUT THE PT HAD BEEN UP AND GOING TO THE BATHROOM BEFORE. VSS WAS TAKEN. REASSESED BP. SBP NOW 160'S. PT STATES HE IS A LITTLE NERVOUS ABOUT THE EGD TOMORROW. ENCOURAGED PT TO RELAX AND GET SOME SLEEP. PT FIRST STOOL WAS A LITTLE BLOOD TINGED, BUT THE LAST 3 IS WELL FORMED AND CLEAR. RR EVEN, NO S/S OF RR DISTRESS. PT CURRENTLY RESTING IN BED. AT BED SIDE. NPO AFTER MIDNIGHT. WILL CPOC.
[2018-12-21 00:20] VITALS: BP 170/73
--- NOTE | 2018-12-21 00:34 | NUR ---
PT C/O HEADACHE. PRN 2TAB 325MG OF TYLENOL GIVEN AT THIS TIME. WILL CTM. CL IN REACH, BED IN LOW, SR UP X2.
--- NOTE | 2018-12-21 03:43 | NUR ---
PT SBP NOW IN THE 190'S, TRIED TO REACH PT PROVIDER, ZULEIKA, BUT HE IS NOT AVAILABLE AT THE MOMENT. WILL CTM. PT.
[2018-12-21 05:00] VITALS: BP 150/75; BP 181/80
--- NOTE | 2018-12-21 06:19 | NUR ---
NOTIFIED KY STOUT ABOUT PT'S INCREASING BP. STATES PROVIDER DOES NOT WANT TO ADD ANY BP MEDS TO PT HOME MEDS AT THIS TIME. HELP PT FROM BED TO CHAIR. REASSESED PT BP. BP NOW 150/75. PT CURRENTLY RESTING, AT BEDSIDE, FSBS 157, 4UNITS OF INSULIN GIVEN AT THIS TIME. PT STILL NPO FOR EGD/COLONOSCOPY WITH TIVA. WILL CPOC.
[2018-12-21 07:23] LABS: BASOPHILS 0.4 % (0-2); EOSINOPHILS 4.1 % (0-7); HEMOGLOBIN 11.7 g/dL (13.5-17.5); IMMATURE GRANULOCYTES 0.1 % (0-5); MCH 30.4 pg (26.0-34.0); MCHC 33.4 g/dL (31.0-37.0); MCV 90.9 fL (80.0-100.0); MEAN PLATELET VOLUME 10.2 fL (7.4-10.4); MONOCYTES 8.7 % (2-11); NEUTROPHILS 63.7 % (40-80); PLATELET COUNT 133 10x3/uL (130-400); RBC 3.85 10x6/uL (4.20-6.10); RDW 13.2 % (11.5-14.5); WBC 7.3 10x3/uL (4.8-10.8)
[2018-12-21 07:33] LABS: ANION GAP 8.5 mmol/L (8-16); CALCIUM 8.8 mg/dL (8.5-10.1); CARBON DIOXIDE 31.6 mmol/L (21.0-32.0); CREATININE - SERUM 1.2 mg/dL (0.6-1.3); POTASSIUM - SERUM 3.1 mmol/L (3.5-5.1)
[2018-12-21] MEDS ORDERED: MYSOLINE 50 MG50 MG PO (08:45)
--- NOTE | 2018-12-21 08:50 | NUR ---
AM ROUNDS COMPLETED. INTRODUCED MYSELF TO PT PRIMARY RN FOR TODAYS SHIFT. PT IS A&O SITTING UP IN BED RESTING QUIETLY. PT IS NPO FOR PLANNED EGD TODAY AND VERBALIZED UNDERSTANDING. PROVIDED PT WITH HIS MORNING MEDICATIONS WITH A SIP OF WATER. ALSO REPLACED PTS POTASSIUM PER ELECTROLYTE PROTOCOL. REVIEWED MEDICATIONS THE MED REC WAS NOT ACCURATE. PT STATES HE IS FEELING ALRIGHT AND HAD A GOOD NIGHT BUT IS HOPING TO BE DISCHARGED LATER TODAY AFTER PROCEDURE. AT BEDSIDE. WILL CTM.
[2018-12-21] MEDS ORDERED: FLOMAX0.4 MG PO (09:03)
[2018-12-21] MEDS ORDERED: MAG-OXIDE400 MG PO (09:03)
[2018-12-21 09:10] VITALS: BP 188/87
--- NOTE | 2018-12-21 11:59 | NUR ---
FSBS 209 DID NOT COVER WITH SS INSULIN R/T PT BEING NPO AND NOT GOING TO GET A LUNCH. PT RESTING QUIETLY IN BED. NO CURRENT NEEDS. WILL CTM.
[2018-12-21 13:24] VITALS: BP 143/86
--- NOTE | 2018-12-21 14:50 | NUR ---
GI LAB CALLED TO PRE-OP PT. PRE-OP MEDICATIONS GIVEN. PT LYING BACK IN BED RESTING QUIETLY WITH FAMILY VISITING AT BEDSIDE. PT DENIES ANY CURRENT PAIN OR NEEDS AT THIS TIME. CL IN REACH, BED IN LOWEST, SIDE RAILS X2. WILL CTM.
--- NOTE | 2018-12-21 14:52 | NUR ---
Nutrition Follow Up: Reviewed labs NPO today for EGD and colonoscopy Previously on Renal ADA diet with 100% intake of meals RD following
--- NOTE | 2018-12-21 15:40 | NUR ---
PT LEAVING FOR PROCEDURE NOW. NO CURRENT NEEDS.
[2018-12-21 17:05] VITALS: BP 188/89
--- NOTE | 2018-12-21 17:07 | NUR ---
PT BACK FROM PROCEDURE AND VERY ADAMENT ABOUT BEING DISCHARGED. ON FLOOR ROUNDING. PT A&O, VSS AND AT BEDSIDE AND OKAY WITH DISCHARGE. WILL FIND OUT ABOUT DISCHARGE.
[2018-12-21] MEDS ORDERED: MOVANTIK25 MG PO (17:09)
--- NOTE | 2018-12-21 18:32 | NUR ---
D/C PTS R.AC PIV WITH CATHETER TIP FULLY INTACT. DISCHARGE TEACHING PROVIDED AND PAPERS SIGNED. PT VERBALIZED UNDERSTANDING AND DENIES ANY QUESTIONS OR CONCERNS. ALL BELONGINGS COLLECTED AND PT IS GETTING DRESSED. TELEMETRY REMOVED AND RETURNED TO [employer] [place].
--- NOTE | 2018-12-24 09:25 | MORECARE ---
CASE MANAGEMENT DISCHARGE SUMMARY PATIENT: FERNANDO NICOLE UNIT: [id number] ADM DATE: 12/18/18 AGE: 78 : 44 SEX: M ROOM/BED: D.2139 AUTHOR: GALINA SHEIKH PHYSICIAN: REFERRING PHYSICIAN: INGRID TO MD DATE OF SERVICE: 12/24/18 Discharge Plan Patient Name: FERNANDO NICOLE [facility] : 1940 Planned Disposition: Home Anticipated Discharge Date: 12/21/18 Discharge Date: 12/21/2018 Expected LOS: 3 Initial Reviewer: [email or web address] Initial Review Date: 12/24/2018 Generated: 12/24/18 10:25 am Patient Name: FERNANDO NICOLE Page [id number] at 0925 All edits/amendments must be made on the electronic document DICTATION DATE: 12/24/18924 AUTHOR: MATILDE 12/24/18924 RPT#: [id number] DC DATE:12/21/18 STATUS: DIS IN [facility] [address] [place] [address] END OF REPORT
== END 2018-12-21 19:17 | disposition home or self-care (01) | DRG 91 ==
LOC: D.ER 11:59 → D.M2 18:03
PROVIDERS: Family Medicine; Internal Medicine Gastroenterology; ADMIT Internal Medicine Nephrology; ATTEND Internal Medicine Nephrology
PROC: 0DBK8ZZ Excision of Ascending Colon, Via Natural or Artificial Opening Endoscopic (ICD-10-PCS; 2018-12-21)
PROC: 0DBL8ZZ Excision of Transverse Colon, Via Natural or Artificial Opening Endoscopic (ICD-10-PCS; 2018-12-21)
PROC: 0DBN8ZZ Excision of Sigmoid Colon, Via Natural or Artificial Opening Endoscopic (ICD-10-PCS; 2018-12-21)
PROC: 0DBM8ZZ Excision of Descending Colon, Via Natural or Artificial Opening Endoscopic (ICD-10-PCS; 2018-12-21)
PROC: 0DB68ZX Excision of Stomach, Via Natural or Artificial Opening Endoscopic, Diagnostic (ICD-10-PCS; principal; 2018-12-21 10:00)
DX: G92 Toxic encephalopathy (principal); J18.9 Pneumonia, unspecified organism; N17.9 Acute kidney failure, unspecified; E11.22 Type 2 diabetes mellitus with diabetic chronic kidney disease; E11.65 Type 2 diabetes mellitus with hyperglycemia; I12.9 Hypertensive chronic kidney disease with stage 1 through stage 4 chronic kidney disease, or unspecified chronic kidney disease; N18.3 Chronic kidney disease, stage 3 (moderate); D50.9 Iron deficiency anemia, unspecified; E78.5 Hyperlipidemia, unspecified; R91.8 Other nonspecific abnormal finding of lung field; J44.9 Chronic obstructive pulmonary disease, unspecified; K21.9 Gastro-esophageal reflux disease without esophagitis; G89.29 Other chronic pain; N40.0 Benign prostatic hyperplasia without lower urinary tract symptoms; T40.2X5A Adverse effect of other opioids, initial encounter; K29.70 Gastritis, unspecified, without bleeding; K44.9 Diaphragmatic hernia without obstruction or gangrene; K63.5 Polyp of colon; K57.90 Diverticulosis of intestine, part unspecified, without perforation or abscess without bleeding; K64.9 Unspecified hemorrhoids; R19.4 Change in bowel habit; G25.3 Myoclonus; D72.1 Eosinophilia; K59.03 Drug induced constipation

== ENCOUNTER → 2019-05-06 13:22 | Outpatient (CLI) | payer MEDICARE, BC ==
[2018-12-19 10:28] VITALS: BMI 35.6
[~2019-05-06 13:22] MED LIST changes: +ASPIRIN81 MG PO; +MAG-OXIDE400 MG PO; +MOVANTIK25 MG PO; +MYSOLINE 50 MG50 MG PO; +XARELTO15 MG PO
== END | disposition home or self-care (01) ==
LOC: D.LABREF 13:22
PROVIDERS: ATTEND Internal Medicine
DX: R19.7 Diarrhea, unspecified (principal)

== ENCOUNTER → 2020-12-03 14:57 | Outpatient (CLI) | payer MEDICARE ==
[2018-12-19 10:28] VITALS: BMI 35.6
[2020-12-03 17:00] LABS: CREATININE - SERUM 1.8 mg/dL (0.6-1.3)
== END | disposition home or self-care (01) ==
LOC: D.LAB 14:45 → D.RT 15:00 → D.CT 15:30
PROVIDERS: ATTEND Internal Medicine Pulmonary Disease
DX: I50.9 Heart failure, unspecified (principal); J96.11 Chronic respiratory failure with hypoxia; R06.00 Dyspnea, unspecified